=== PATIENT | female | born 1970 | race Caucasian/White ===

== ENCOUNTER 2019-04-03 17:30 | Outpatient (RCR) | payer BC, SELFPAY ==
--- NOTE | 2019-04-08 08:56 | HP.PTEVAL_ITS ---
Patient's Visit Information JORGE ALBERTO JARQUIN is a 48 year old F referred to Physical Therapy by Scott Pederson DPM with a diagnosis of R plantar fascitis. Date of Evaluation: 03/20/19 Physical Therapist: Yovani Agosto DPT - Visit Plan Frequency: 2x /Week Duration: 4 Weeks Plan: Start with , david woods, december trial DN adn foot intrinsic strengthening. - Subjective Findings: Pt. is here today for her initial evaluation with R plantar fasciatis. Pt. reports having symptoms for several months not, it feels like I am walking on a stone. pt. reports doing some stretching, but not much else. She did change her footwear, shich did help some. Pt. reports no pain at rest, but having 4/10 pain with walking and worse upto 6/10 at end of work day. Pt. has not changed much or her routine secondary to pain. Pt. denies N/T, but is now having some burning in her heel as well. Pt. is hopeful to get back to all recreational acgiities including crossfit withotu limtations. - Pain R plantar fascia origin Pain Intensity (Out of 10): 3 Pain Intensity Range: 1, 6 - Objective POSTURE: pt. has normal posture in stance. Pt. has good arch, without appears navicular drop in SLS. Ankle instability noted bilaterally in SLS>. PALAPTION: Pt. has increased tenderness at plantar fascia origin and slight buring as i nferior aspect of calcaneus. NEURO: normal throughout. ROM: pt. has good ROM throughout bilateral ankles and feet. MMT: Pt. kang 5-/5 B ankle DF and EVR, rest is 5/5. Pt .has slight weakness with bilateral foot instrinsics. GAIT: PT. has normal gait pattern, slight toeing out on R side with slight over prontation during stance phase. Mild increase in symptoms with walking. SPECIAL TESTING: postive windlass test in standing, negative in supine. - Goals Goal 1:: Pt to be I with HEP. Goal Time Frame: 4-6 Weeks Goal 2:: Pt. to ambulate without increase insymptoms. Goal Time Frame: 4-6 Weeks Goal 3:: Pt. to have increased foot intrinsic strength by 1/2 grade Goal Time Frame: 4-6 Weeks Goal 4:: Pt. to complete all work activities without increase in symptoms. Goal Time Frame: 4-6 Weeks Goal 5:: Pt. to resume all crossfit work out withotu increase in symptoms Goal Time Frame: 4-6 Weeks - Rehabilitation Potential Physical Therapy Diagnosis: Pt. has signs and symptoms consistent with R plantar fascitis. Pt. has been able to compelte most daily activities, but does have incerased symptoms at the end of the day. Pt. has slight weaknes in B foot intrinsics and slight over pronation during gait. Pt. would benefit from PT to reduce symptoms and porogress back to all recreational activities without limitations. Rehabilitation Potential: Good - Anticipated Interventions Patient/Client Instruction: Educate patient on: Condition, Plan of Care, Risk Factors, Benefits of Fitness Program For the Purpose of:: To improve decision making, To facilitate caregiver knowledge, To improve self management, To prevent re-injury, To improve ability to perform tasks related to life management, To improve tolerance to ADL's Therapeutic Exercise to Include: Strength training, Power training, Balance training, Postural training, Flexibilty training, Gait and locomotor training, Passive ROM, Active ROM For the Purpose of:: To decrease pain, To increase ROM, To increase oxygenation perfusion, To improve muscle performance and motor function, To improve ability to perform ADL's, To improve gait and locomotor functions Manual Therapy Techniques to Include: Mobilization, Functional dry needling, Soft tissue mobilization For the Purpose of:: To decrease pain, To decrease swelling/inflammation, To increase ROM, To improve nutrient delivery to tissue, To increase oxygenation perfusion Ultrasound (thermal/non thermal): Yes For the Purpose of:: To decrease pain, To decrease swelling/inflammation, To increase ROM, To improve nutrient delivery to tissue, To increase oxygenation perfusion, To improve muscle performance and motor function Thank you for the opportunity to evaluate your patient. For Medicare and Medicare HMO plans, please review the plan of care and approve it. It will need to be FAXED BACK to us at [phone] for Medicare purposes. For Medicare only, by signing this I certify the plan of care. Please let me know if there are questions or concerns regarding this plan of care. Physician Signature: Date:
== END 2019-04-03 19:00 | disposition home or self-care (01) ==
LOC: PT 17:30
PROVIDERS: Family Provider Nurse Practitioner; PCP Nurse Practitioner; Referring Provider Podiatrist; Visit Provider Podiatrist
DX: M72.2 Plantar fascial fibromatosis (principal); M76.891 Other specified enthesopathies of right lower limb, excluding foot
CPT/HCPCS: 97035; 97140; 97161

== ENCOUNTER 2019-09-26 10:00 | Outpatient (RCR) | payer BC, SELFPAY ==
--- NOTE | 2019-09-12 11:17 | HP.PTEVAL ---
Patient's Visit Information JORGE ALBERTO JARQUIN is a 48 year old F referred to Physical Therapy by Scott Pederson DPM with a diagnosis of Right Plantar Fascitis. Date of Evaluation: 09/12/19 Physical Therapist: Vicky Flynn DPT - Visit Plan Frequency: 2x /Week Duration: 4 Weeks Plan: Inflammation control- DN, cupping, US - Subjective Findings: Right foot pain since December- has done PT was unable to come. She did EPAT at the office which helped a little but there are days that its not so good. Pain is located in the heel- she has numbness in the heel. 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 First thing in the AM is the worse. 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 Worst: 2/10 Best: 0/10- she does not let things slow her down. Work:[employer] and [employer]- she is driving or moving. She is very active- has animals and is always moving. Has a night splint that she does not always wear. Work boots or shoes always have insoles in. Wears good shoes. Has had 1 time of dry needling. Get painfree and be able to do all her stuff. MRI:did not show a tear PMHx: Thyroid Meds: levothyroxine - Objective Posture: good throughout. Gait: slightly antalgic- decrease stance on the right LE. HR/TR: able with reports of discomfort with TR. SLS: 10 sec without LOB. Palpation: tender along proximal end of the plantar fascia. ROM: WFL in all planes. Strength: 5/5 throughout. Flex: HS: mild, Gastroc: mild - Goals Goal 1:: Patient will be I with HEP and progression Goal Time Frame: 4-6 Weeks Goal 2:: Patient will report 0/10 pain for 1 week Goal Time Frame: 4-6 Weeks - Rehabilitation Potential Physical Therapy Diagnosis: Patient presents with increased inflammation to the plantar surface of the right foot increaseing pain with ADL's. Rehabilitation Potential: Fair - Anticipated Interventions Manual Therapy Techniques to Include: Mobilization, Passive ROM, Functional dry needling, Soft tissue mobilization For the Purpose of:: To improve nutrient delivery to tissue TENS: Yes Cryotherapy (ice pack, ice massage): Yes Thermo therapy (hot pack): Yes Ultrasound (thermal/non thermal): Yes Thank you for the opportunity to evaluate your patient. For Medicare and Medicare HMO plans, please review the plan of care and approve it. It will need to be FAXED BACK to us at [phone] for Medicare purposes. For Medicare only, by signing this I certify the plan of care. Please let me know if there are questions or concerns regarding this plan of care. Physician Signature: Date:
--- NOTE | 2020-01-07 11:52 | HP.PT.NRP ---
JORGE ALBERTO JARQUIN was seen in my office for initial evaluation on 09/12/19. The following Plan of Care was established for this patient: Initial Frequency: 2x /Week Initial Duration: 4 Weeks Manual Therapy Techniques to Include: Mobilization, Passive ROM, Functional dry needling, Soft tissue mobilization For the Purpose of:: To improve nutrient delivery to tissue TENS: Yes Cryotherapy (ice pack, ice massage): Yes Thermo therapy (hot pack): Yes Ultrasound (thermal/non thermal): Yes This patient was last seen in our office . Pertinent comments regarding their Physical therapy will appear below: Patient has not attended PT for over 8 weeks- appropriate to be d/c at this time and follow up with MD as needed. At this point I will be discontinuing this patient from physical therapy. I would be happy to see this patient again in the future if found appropriate by the physician. Thank you! KAYDEN VeeT
== END 2019-09-26 19:00 | disposition home or self-care (01) ==
LOC: PT 10:00
PROVIDERS: Family Provider Nurse Practitioner; PCP Nurse Practitioner; Referring Provider Podiatrist; Visit Provider Podiatrist
DX: M72.2 Plantar fascial fibromatosis (principal)
CPT/HCPCS: 97035; 97140; 97161